=== PATIENT | female | born 1990 | race Caucasian/White ===

== ENCOUNTER 2018-12-12 00:25 | Emergency (ER) | payer MEDICAID, OTHER ==
[2018-12-12] MEDS ORDERED: TYLENOL PO ONE (00:47)
[2018-12-12] MEDS ORDERED: FLEXERIL PO ONE (00:47)
[2018-12-12] MEDS ORDERED: FLEXERIL ONE (00:48)
[2018-12-12] MEDS ORDERED: TYLENOL ONE (00:48)
[2018-12-12] MEDS ORDERED: MORPHINE IM ONE (01:47)
[2018-12-12] MEDS ORDERED: ZOFRAN IV ONE (01:47)
--- NOTE | 2018-12-12 02:19 | Emergency Department Report ---
ED Fall HPI - General Chief Complaint: Back Pain/Injury Stated Complaint: BACK PAIN AND LEG PAIN Time Seen by Provider: 12/12/18 01:41 Source: patient Mode of arrival: Ambulatory - History of Present Illness Initial Comments: 28-year-old female presents to the emergency room for back pain that radiates to left lower leg 3 days. Patient reports she had a fall while ca rrying a nikita size mattress up stairs 3 days ago. Patient reports that she's been taken Tylenol and ibuprofen without much relief. Patient currently has no past medical history does not take any medicines on a daily basis has no known drug allergies. Last menstrual period was 11/20/2018. Complaint: fall -: days(s) (3) Fall From: other (upstairs while carrying a heavy package) Fall Witnessed: yes, by bystander Place Fall Occurred: home Loss of Consciousness: none Prolonged Down Time?: no Symptoms Prior to Fall: none Location: back Location - Extremities: Right: Thigh, Knee, Leg Severity: severe Severity scale (0 -10): 10 Quality: sharp, stabbing Associated Symptoms: other (difficulty walking) - Related Data Previous Rx's Medication Instructions Recorded Last Taken Type HYDROcodone/APAP 5-325 [Jennings 2 each PO Q4H PRN #30 tablet 06/17/14 Unknown Rx 5-325 mg TAB] Ibuprofen [Motrin 600 MG tab] 600 mg PO Q6HR #30 tablet 06/17/14 Unknown Rx Baclofen [Lioresal] 10 mg PO TID #15 tab 12/12/18 Unknown Rx Ibuprofen [Motrin 800 MG tab] 800 mg PO Q8HR PRN #30 tablet 12/12/18 Unknown Rx Allergies Allergy/AdvReac Type Severity Reaction Status Date / Time No Known Allergies Allergy Verified 06/16/14 06:33 ED Review of Systems ROS: Stated complaint: BACK PAIN AND LEG PAIN Other details as noted in HPI Comment: All other systems reviewed and negative Musculoskeletal: back pain ED Past Medical Hx - Past Medical History Previous Medical History?: Yes Hx Hypertension: No Hx Congestive Heart Failure: No Hx Diabetes: No Hx Deep Vein Thrombosis: No Hx Renal Disease: No Hx Sickle Cell Disease: No Hx Seizures: No Hx Asthma: No Hx COPD: No Hx HIV: No - Surgical History Past Surgical History?: No - Social History Smoking Status: Never Smoker Substance Use Type: None - Medications Home Medications: Home Medications Medication Instructions Recorded Confirmed Last Taken Type HYDROcodone/APAP 5-325 [Jennings 2 each PO Q4H PRN #30 tablet 06/17/14 Unknown Rx 5-325 mg TAB] Ibuprofen [Motrin 600 MG tab] 600 mg PO Q6HR #30 tablet 06/17/14 Unknown Rx Baclofen [Lioresal] 10 mg PO TID #15 tab 12/12/18 Unknown Rx Ibuprofen [Motrin 800 MG tab] 800 mg PO Q8HR PRN #30 tablet 12/12/18 Unknown Rx ED Physical Exam - General Limitations: No Limitations General appearance: alert, other (pierced to be in pain) - Head Head exam: Present: atraumatic, normocephalic - Eye Eye exam: Present: PERRL, EOMI - ENT ENT exam: Present: mucous membranes moist - Respiratory Respiratory exam: Present: normal lung sounds bilaterally. Absent: respiratory distress - Cardiovascular Cardiovascular Exam: Present: regular rate, normal rhythm. Absent: systolic murmur, diastolic murmur, rubs, gallop - Back Exam Back exam: Present: full ROM, tenderness, muscle spasm - Neurological Exam Neurological exam: Present: alert, oriented X3 - Psychiatric Psychiatric exam: Present: normal affect, normal mood - Skin Skin exam: Present: warm, dry, intact, normal color. Absent: rash ED Course Vital Signs 12/12/18 12/12/18 12/12/18 00:31 00:33 01:56 Temperature 97.6 F 97.6 F Pulse Rate 97 H Respiratory 18 16 Rate Blood Pressure 124/77 Blood Pressure [Right] O2 Sat by Pulse 96 Oximetry 12/12/18 03:55 Temperature 98.2 F Pulse Rate 86 Respiratory 16 Rate Blood Pressure Blood Pressure 103/68 [Right] O2 Sat by Pulse 100 Oximetry ED Medical Decision Making - Radiology Data Radiology results: report reviewed Patient: JESSICA PANDEY MR#: [id number] : 1990 Acct:[id number] Age/Sex: 28 / F ADM Date: 12/12/18 Loc: ED Attending Dr: Ordering Physician: TRINIDAD DEJESUS Date of Service: 12/12/18 Procedure(s): XR spine thoracic 2V Accession Number(s): [id number] cc: TRINIDAD DEJESUS Fluoro Time In Minutes: PROCEDURE: XR SPINE THORACIC 2V TECHNIQUE: Thoracic spine radiographs, including AP and lateral projections. HISTORY: s/p fall with back pain COMPARISONS: None FINDINGS: Alignment: Normal Vertebral body height: Normal Disk spaces: Normal Fracture(s): None Bone mineralization: Normal IMPRESSION: Normal Examination This document is electronically signed by Anibal Mae MD., December 12 2018 02:50:32 AM ET Transcribed By: CO Dictated By: ANIBAL MAE MD Electronically Authenticated By: ANIBAL MAE MD Signed Date/Time: 12/12/182 DD/ 7 TD/TT: 12/12/18217 Ordering Physician: TRINIDAD DEJESUS Date of Service: 12/12/18 Procedure(s): XR spine lumbosacral 2-3V Accession Number(s): [id number] cc: TRINIDAD DEJESUS Fluoro Time In Minutes: PROCEDURE: XR SPINE LUMBOSACRAL 2-3V TECHNIQUE: Lumbar spine radiographs, including AP, lateral, bilateral oblique, flexion, and extension views. HISTORY: s/p fall back pain COMPARISONS: None . FINDINGS: Alignment in neutral position: There is grade 1 anterior spondylolisthesis of L4 over L5 due to facet arthropathy. . Vertebral body movement with flexion and extension: Physiologic . Vertebral body heights/Disk spaces: Normal . Fracture(s): There is bilateral facet hypertrophy at L4-5 and L5-S1. . Facets: Normal . Bone mineralization: Normal . IMPRESSION: There are no compression fractures. . There is grade 1 anterior spondylolisthesis of L4 over L5 due to facet arthropathy. . There is bilateral facet hypertrophy at L4-5 and L5-S1. . This document is electronically signed by Anibal Mae MD., December 12 2018 03:00:32 AM ET Transcribed By: CO Dictated By: ANIBAL MAE MD Electronically Authenticated By: ANIBAL MAE MD Signed Date/Time: 12/12/18 0303 DD/ 1 TD/TT: 12/12/18221 - Medical Decision Making She has been evaluated by this provider in fast track. Patient was given Tylenol in triage and tramadol in fast track as well as morphine 2 mg with Zofran 2 mg for pain management. Patient reports that the pain has improved but still present. X-rays of the thoracic lumbar and sacral were ordered. Patient be discharged home on ibuprofen and baclofen and a referral to orthopedist. Critical care attestation.: If time is entered above; I have spent that time in minutes in the direct care of this critically ill patient, excluding procedure time. ED Disposition Clinical Impression: Facet hypertrophy of lumbosacral region, Back pain at L4-L5 level Disposition: DC-01 TO HOME OR SELFCARE Is pt being admited?: No Does the pt Need Aspirin: No Condition: Stable Instructions: Back Pain (ED) Additional Instructions: Please take pain medication as needed. Follow up with orthopedics I have listed their information below for your convenience Prescriptions: Baclofen [Lioresal] 10 mg PO TID #15 tab Ibuprofen [Motrin 800 MG tab] 800 mg PO Q8HR PRN #30 tablet PRN Reason: Pain , Severe (7-10) Referrals: JEFF DUMONT MD [Staff Physician] - 3-5 Days [facility] [Provider Group] - 3-5 Days Forms: Accompanied Note, Work/School Release Form(ED)
--- NOTE | 2018-12-12 02:52 | XRay Report ---
PROCEDURE: XR SPINE THORACIC 2V TECHNIQUE: Thoracic spine radiographs, including AP and lateral projections. HISTORY: s/p fall with back pain COMPARISONS: None FINDINGS: Alignment: Normal Vertebral body height: Normal Disk spaces: Normal Fracture(s): None Bone mineralization: Normal IMPRESSION: Normal Examination This document is electronically signed by Anibal Horan MD., December 12 2018 02:50:32 AM ET
--- NOTE | 2018-12-12 03:03 | XRay Report ---
PROCEDURE: XR SPINE LUMBOSACRAL 2-3V TECHNIQUE: Lumbar spine radiographs, including AP, lateral, bilateral oblique, flexion, and extensio n views. HISTORY: s/p fall back pain COMPARISONS: None . FINDINGS: Alignment in neutral position: There is grade 1 anterior spondylolisthesis of L4 over L5 due to face t arthropathy. . Vertebral body movement with flexion and extension: Physiologic . Vertebral body heights/Disk spaces: Normal . Fracture(s): There is bilateral facet hypertrophy at L4-5 and L5-S1. . Facets: Normal . Bone mineralization: Normal . IMPRESSION: There are no compression fractures. . There is grade 1 anterior spondylolisthesis of L4 over L5 due to facet arthropathy. . There is bilateral facet hypertrophy at L4-5 and L5-S1. . This document is electronically signed by Anibal Horan MD., December 12 2018 03:00:32 AM ET
[2018-12-12 03:56] VITALS: BP 103/68
== END 2018-12-12 04:47 | disposition home or self-care (01) ==
LOC: ED 00:25
DX: M54.5 Low back pain (principal); M47.817 Spondylosis without myelopathy or radiculopathy, lumbosacral region
CPT/HCPCS: 72070; 72100; 96372; 96374; 99283; J2270; J2405